=== PATIENT | male | born 1985 | race Caucasian/White ===

== ENCOUNTER 2017-04-03 10:09 | Emergency (ER) | payer MEDICAID ==
[~2017-04-03] VITALS: Ht 167.6 cm; Wt 72.4 kg
[2017-04-03 10:41] VITALS: BP 138/85
[2017-04-03] MEDS ORDERED: MAALOX/HYOSCYAMINE/LIDOCAINE 45 ML BTL PO ONE (13:00)
[2017-04-03] MEDS ORDERED: FAMOTIDINE 20 MG TABLET PO ONE (13:00)
[2017-04-03] MEDS ORDERED: LORazepam 1MG TABLET PO ONE (13:00)
[2017-04-03] MEDS ORDERED: MAALOX/HYOSCYAMINE/LIDOCAINE 45 ML BTL ONE (13:05)
[2017-04-03] MEDS ORDERED: FAMOTIDINE 20 MG TABLET ONE (13:05)
[2017-04-03] MEDS ORDERED: LORazepam 1MG TABLET ONE (13:05)
== END 2017-04-03 13:52 | disposition home or self-care (01) ==
LOC: ED 13:20
DX: F41.1 Generalized anxiety disorder (principal); R51 Headache
CPT/HCPCS: 70450; 99284